=== PATIENT | female | born 1975 | race Caucasian/White ===

== ENCOUNTER 2018-06-04 00:35 | Emergency (ER) | payer MEDICARE ==
[2018-06-04] MEDS ORDERED: Dexamethasone 4 MG TAB ONE (00:59)
[2018-06-04] MEDS ORDERED: Azithromycin 250 MG TAB ONE (00:59)
== END 2018-06-04 01:01 | disposition home or self-care (01) ==
LOC: BURERS 00:35
DX: J20.9 Acute bronchitis, unspecified (principal); F17.200 Nicotine dependence, unspecified, uncomplicated; I10 Essential (primary) hypertension; F84.0 Autistic disorder
CPT/HCPCS: 99283; J8540

== ENCOUNTER 2020-10-19 18:00 | Emergency (ER) | payer MEDICARE, OTHER ==
[2020-10-19] MEDS ORDERED: Ketorolac Tromethamine 60 MG/2 ML VIAL ONE (19:53)
== END 2020-10-19 20:35 | disposition home or self-care (01) ==
LOC: BURERS 18:00
DX: S20.212A Contusion of left front wall of thorax, initial encounter (principal); S30.1XXA Contusion of abdominal wall, initial encounter; S80.212A Abrasion, left knee, initial encounter; S80.211A Abrasion, right knee, initial encounter; I10 Essential (primary) hypertension; E66.9 Obesity, unspecified; F17.290 Nicotine dependence, other tobacco product, uncomplicated; V89.2XXA Person injured in unspecified motor-vehicle accident, traffic, initial encounter
CPT/HCPCS: 96372; J1885

== ENCOUNTER 2021-08-19 19:13 | Emergency (ER) | payer MEDICARE ==
[2021-08-19] MEDS ORDERED: Lidocaine 1% w/Epinephrine 1:100K 20 ML VIAL ONE (20:37)
[2021-08-19] MEDS ORDERED: Lidocaine 2% w/Epinephrine 1:200K 20 ML VIAL ONE (20:37)
[2021-08-19] MEDS ORDERED: Lidocaine 1% PF 5 ML VIAL ONE ×2 (20:46)
[2021-08-19] MEDS ORDERED: Acetaminophen 500 MG TAB ONE (21:04)
[2021-08-19] MEDS ORDERED: Fluconazole 100 MG TAB ONE (21:45)
== END 2021-08-19 21:55 | disposition home or self-care (01) ==
LOC: BURERS 19:13
DX: N76.4 Abscess of vulva (principal); I10 Essential (primary) hypertension; F84.0 Autistic disorder; F17.200 Nicotine dependence, unspecified, uncomplicated; Z79.899 Other long term (current) drug therapy
CPT/HCPCS: 56405